=== PATIENT | male | born 1985 | race Caucasian/White ===

== ENCOUNTER 2018-10-22 12:20 | Emergency (ER) | payer BC ==
--- NOTE | 2018-10-22 12:51 | EDM.PDOC ---
ED HPI GENERAL MEDICAL PROBLEM - General Chief Complaint: Head Injury Stated Complaint: HEAD INJURY Time Seen by Provider: 10/22/18 12:31 - History of Present Illness INITIAL COMMENTS - FREE TEXT/NARRATIVE: HISTORY AND PHYSICAL: History of present illness: The patient is a healthy 33-year-old male who presents with complaints of falling off of a hoverboard last evening. He says that it suddenly stopped and he capped going forward with his momentum and he could not catch his balance and he fell striking the back of his head. He did lose consciousness for about a minute and has had pain at the site of the fall and some swelling of his scalp there. He has not had nausea or vomiting but he has had pain to his left ear and a crunching-like sensation when he chews in that ear. He also feels like he has had some loss of taste and smell but no visual changes no neck pain or back pain and no extremity complaints. He's had no numbness tingling or weakness in his extremities. He does not have any gait disturbances. Review of systems: As per history of present illness and below otherwise all systems reviewed and negative. Past medical history: As per history of present illness and as reviewed below otherwise noncontributory. Surgical history: As per history of present illness and as reviewed below otherwise noncontributory. Social history: No reported history of drug or alcohol abuse. Family history: As per history of present illness and as reviewed below otherwise noncontributory. Physical exam: HEENT: Atraumatic except for some soft tissue swelling noted at the top of the occipital area of the scalp tenderness but no bony deformity,, normocephalic, pupils reactive, EOMs are intact negative for conjunctival pallor or scleral icterus, mucous membranes moist, throat clear, neck supple, nontender, trachea midline. Teeth and bite are intact, there are no midline step-offs tenderness defects of the cervical spine. The right TM has a good light reflex and was within normal limits and there is no mastoid tenderness or ecchymosis. The left TM is normal with the exception of a high shaped area located approximately 10 to 12:00 which looks somewhat bloody and inflamed. The remainder of the TM has a good light reflex and there is no gross evidence of a perforation the mastoid and the site is also nontender without ecchymosis. There are no palpable bony deformities of the face and no otero sign or raccoon eyes. Lungs: Clear to auscultation, breath sounds equal bilaterally, chest nontender. Heart: S1S2, regular rate and rhythm no overt murmurs Abdomen: Soft, nondistended, nontender. NABS Pelvis: Deferred Genitourinary: Deferred. Rectal: Deferred. Extremities: Atraumatic, range of motion without defects or deficits Neurovascular unremarkable. Neuro: Awake, alert, oriented. Cranial nerves II through XII unremarkable. Cerebellum unremarkable. Motor and sensory unremarkable throughout. Exam nonfocal. Diagnostics: CT of the head, CT scan of the orbits and sella Therapeutics: Toradol IM 1320: Due to the CT scan findings of air in the TMJ and some air in the parapharyngeal space without any evidence of fracture I discussed this case with Dr. Lara, the ENT on-call for [facility]. He is recommending a CT scan of the orbits and sella not for the air in the TMJ but for the patient's loss of smell and taste as there may be a cribriform plate fracture which may be affecting the old factory nerves. She says that there is not any good treatment for this but it would be important for him to know to manage this and he would like the CT to be done. In the event that the CT is positive I will call him back and if it is negative he would like me to put the patient on a course of steroids, 40 mg a day for the next 7-10 days. He says that oftentimes there is just inflammatory changes from the trauma that caused the loss of smell and taste. He is not particularly concerned about the air in the TMJ or in the parapharyngeal space. The patient and at bedside are aware of all of these results as well as my dialogue with the ENT 1444: As discussed with Dr. Lara again after the CT scan results were obtained of the orbits and sella which reveal a temporal bone fracture which extends into the mastoid area. He says that this is managed symptomatically but he still agrees with giving the course of prednisone as this may help with the old factory area if it is just inflammatory. He has the patient's name and will follow him up in the clinic is finished with his prednisone course. I will give the patient that information. 1451: I did also discuss this case with Dr. Schulz the neurosurgeon at [facility] who agrees this is just symptomatic management and that he can follow- up with Dr. Lara. Impression: Fall with Concussion syndrome, closed head injury with brief loss of consciousness; temporal bone fracture left with loss of smell and taste Definitive disposition and diagnosis as appropriate pending reevaluation and review of above. head Pain Score (Numeric/FACES): 4 - Related Data Allergies Allergy/AdvReac Type Severity Reaction Status Date / Time No Known Allergies Allergy Verified 10/22/18 12:30 Home Meds: Home Meds . [No Known Home Meds] 10/22/18 [History] Past Medical History - Infectious Disease History Infectious Disease History: Reports: Chicken Pox - Past Surgical History Other Musculoskeletal Surgeries/Procedures:: leg surgery Social & Family History - Tobacco Use Smoking Status *Q: Never Smoker - Recreational Drug Use Recreational Drug Use: No ED ROS GENERAL - Review of Systems Review Of Systems: ROS reveals no pertinent complaints other than HPI. ED EXAM, HEAD INJURY - Physical Exam Exam: See Below (see Dictation) Course - Vital Signs Last Recorded V/S: Last Vital Signs Temp 36.7 C 10/22/18 12:31 Pulse 81 10/22/18 14:30 Resp 18 10/22/18 14:30 BP 119/76 10/22/18 14:30 Pulse Ox 98 10/22/18 14:30 - Orders/Labs/Meds Meds: Medications Discontinued Medications Generic Name Dose Route Start Last Admin Trade Name Freq PRN Reason Stop Dose Admin Ketorolac Tromethamine 60 mg 10/22/18 14:39 Toradol IM 10/22/18 14:40 ONETIME ONE Departure - Departure Time of Disposition: 15:03 Disposition: Home, Self-Care 01 Condition: Good Clinical Impression: Concussion syndrome Closed head injury Qualifiers: Encounter type: initial encounter Qualified Code(s): S09.90XA - Unspecified injury of head, initial encounter Tympanic membrane irritation Qualifiers: Laterality: left Qualified Code(s): H73.92 - Unspecified disorder of tympanic membrane, left ear Fracture of temporal bone Qualifiers: Encounter type: initial encounter Fracture type: closed Qualified Code(s): S02.19XA - Other fracture of base of skull, initial encounter for closed fracture - Discharge Information Referrals: PCP,Unknown [Primary Care Provider] - Forms: ED Department Discharge Additional Instructions: The following information is given to patients seen in the emergency department who are being discharged to home. This information is to outline your options for follow-up care. We provide all patients seen in our emergency department with a follow-up referral. The need for follow-up, as well as the timing and circumstances, are variable depending upon the specifics of your emergency department visit. If you don't have a primary care physician on staff, we will provide you with a referral. We always advise you to contact your personal physician following an emergency department visit to inform them of the circumstance of the visit and for follow-up with them and/or the need for any referrals to a consulting specialist. The emergency department will also refer you to a specialist when appropriate. This referral assures that you have the opportunity for followup care with a specialist. All of these measure are taken in an effort to provide you with optimal care, which includes your followup. Under all circumstances we always encourage you to contact your private physician who remains a resource for coordinating your care. When calling for followup care, please make the office aware that this follow-up is from your recent emergency room visit. If for any reason you are refused follow-up, please contact the [facility] emergency department at and ask to speak to the emergency department charge nurse. [facility] Primary care- Internal Medicine and Family [address] [address] Use [id number] Tylenol and ibuprofen as needed for pain and at the tramadol as you choose. Please call and schedule a follow-up appointment with Dr. Lara or one of his associates at [facility] for further ENT care of your sense of smell and taste losses. Please do all activities slowly as your equilibrium may be involved and affected. Return to ER as needed and as discussed
--- NOTE | 2018-10-22 13:11 | CT ---
INDICATION: Patient fell off a hover board last night onto back a head. Loss of consciousness and memory loss. Pain. TECHNIQUE: CT head without IV contrast. FINDINGS: Few air bubbles in the soft tissues just below the left skullbase extending along the lateral parapharyngeal region could be posttraumatic. No obvious skull fracture. Air within the left temporomandibular joint. Minimal mucosal thickening left maxillary sinus. No acute intracranial hemorrhage, edema, or mass effect. Mild soft tissue swelling and hematoma involving the posterior mid and upper deep scalp soft tissues related to the recent trauma. Remainder negative. IMPRESSION: 1. No acute intracranial disease including no intracranial hemorrhage. 2. Mild soft tissue swelling and hematoma in the mid and upper posterior scalp. 3. Small foci of air in the soft tissues just beneath the left skullbase may be posttraumatic. Please note that all CT scans at this facility use dose modulation, iterative reconstruction, and/or weight-based dosing when appropriate to reduce radiation dose to as low as reasonably achievable. Dictated by Delon Haines MD @ Oct 22 2018 1:05PM Signed by Dr. Delon Haines @ Oct 22 2018 1:10PM
--- NOTE | 2018-10-22 14:37 | CT ---
INDICATION: Loss of smell, rule out cribriform plate fracture TECHNIQUE: CT of the skullbase without contrast. Coronal reformats are included. COMPARISON: CT head from 10/22/2018 FINDINGS: Nondisplaced fracture of the left temporal bone, which is obliquely oriented and originates at the left temporal occipital suture and extends through the mastoid air cells to the glenoid fossa. The ossicles are not displaced and there is no involvement of the otic capsule. Posttraumatic foci of gas within the left TMJ joint and adjacent soft tissues including the left parapharyngeal fat The cribriform plate appears normal. Mild mucosal thickening within the maxillary sinus alveolar recesses. Scattered left mastoid fluid. IMPRESSION: 1. Nondisplaced obliquely oriented fracture of the left temporal bone with fracture plane extending from the left occipital temporal suture to the glenoid fossa. No ossicular dislocation. Fracture does not involve the otic capsule. 2. No fracture of the cribriform plate. Please note that all CT scans at this facility use dose modulation, iterative reconstruction, and/or weight-based dosing when appropriate to reduce radiation dose to as low as reasonably achievable. Dictated by Modesto Tate MD @ Oct 22 2018 2:25PM Signed by Dr. Modesto Tate @ Oct 22 2018 2:37PM
[2018-10-22] MEDS ORDERED: Ketorolac 60 MG/2 ML SDV IM ONE (14:39)
== END 2018-10-22 15:41 | disposition home or self-care (01) ==
LOC: MW.ED 12:20
DX: S06.0X1A Concussion with loss of consciousness of 30 minutes or less, initial encounter (principal); S02.19XA Other fracture of base of skull, initial encounter for closed fracture; H73.92 Unspecified disorder of tympanic membrane, left ear; W18.09XA Striking against other object with subsequent fall, initial encounter
CPT/HCPCS: 70450; 70480; 96372; 99283; J1885